=== PATIENT | male | born 1980 | race Caucasian/White ===

== ENCOUNTER 2016-10-07 09:01 | Emergency (ER) | payer OTHER ==
[2016-10-07] MEDS ORDERED: SODIUM CHLORIDE 0.9% 1,000 ML ONE (10:41)
[2016-10-07] MEDS ORDERED: Meclizine HCl 25 MG TAB ONE (10:41)
== END 2016-10-07 12:01 | disposition home or self-care (01) ==
LOC: ER 09:01
CPT/HCPCS: 70450; 93005; 96360; 96361